=== PATIENT | male | born 1935 | race Caucasian/White ===

== ENCOUNTER 2018-04-30 14:52 | Emergency (ER) | payer OTHER ==
[~2018-04-30] VITALS: Ht 182.9 cm; Wt 74.8 kg
[2018-04-30 15:11] VITALS: BP 161/67
[2018-04-30] MEDS ORDERED: LIDOCAINE 1% 500 MG/50 ML VIAL INJ SCH (16:55)
[2018-04-30 17:58] VITALS: BP 155/69
== END 2018-04-30 17:59 | disposition home or self-care (01) ==
LOC: MED 14:52
DX: S16.1XXA Strain of muscle, fascia and tendon at neck level, initial encounter (principal); I10 Essential (primary) hypertension; X58.XXXA Exposure to other specified factors, initial encounter; Y93.89 Activity, other specified; Y92.89 Other specified places as the place of occurrence of the external cause; Y99.8 Other external cause status
CPT/HCPCS: 20552; 99284; J2001

== ENCOUNTER 2023-02-09 09:38 | Emergency (ER) | payer OTHER ==
[~2023-02-09] VITALS: Ht 182.9 cm; Wt 71.9 kg
[~2023-02-09 09:38] MED LIST: PANT40EC PO; ROB PO
[2023-02-09 10:01] VITALS: BP 156/79; PULSE 78; RESP 20; TEMP 98.7; O2SAT 100
[2023-02-09] MEDS ORDERED: LIDOCAINE 5% 1 EA PATCH TP SCH (13:50)
[2023-02-09] MEDS ORDERED: MORPHINE SULFATE 4 MG/ML SYR IM ONE (13:50)
--- NOTE | 2023-02-09 13:51 | NUR ---
PT HAS BEEN MEDICATED PER PROVIDERS ORDERS.
[2023-02-09 14:09] LABS: BASOPHILS % (AUTO) 0.1 % (0.0-2.0); EOSINOPHILS % (AUTO) 0.3 % (0.0-4.0); HEMATOCRIT 41.7 % (36-52); HEMOGLOBIN 14.6 g/dL (12.0-18.0); LYMPHOCYTES # (AUTO) 0.8 K/uL (2.0-11.5); LYMPHOCYTES % (AUTO) 12.9 % (20.5-51.1); MEAN CORPUSCULAR HEMOGLOBIN 32 pg (27-31); MEAN CORPUSCULAR HGB CONC 35 g/dL (33-37); MEAN CORPUSCULAR VOLUME 90.3 fL (80-94); MONOCYTES # (AUTO) 0.4 K/uL (0.8-1.0); MONOCYTES % (AUTO) 7.6 % (1.7-9.3); NEUTROPHILS # (AUTO) 4.6 K/uL (1.8-7.7); NEUTROPHILS % (AUTO) 79.1 % (42.2-75.2); PLATELET COUNT (AUTO) 178 K/uL (140-450); RED BLOOD CELL COUNT(AUTO) 4.62 MIL/uL (4.20-6.10); RED CELL DISTRIBUTION WIDTH 14.3 % (11.6-13.7); WHITE BLOOD COUNT (AUTO) 5.9 K/uL (4.8-10.8)
[2023-02-09 14:21] LABS: ALBUMIN 3.9 g/dL (3.4-5.0); ANION GAP 11.8 (8-16); ASPARTATE AMINOTRANSFERASE 24 U/L (15-37); CARBON DIOXIDE 28.7 mmol/L (21-32); CHLORIDE 102 mmol/L (98-107); CREATININE 0.9 mg/dL (0.6-1.3); GLUCOSE 92 mg/dL (74-106); POTASSIUM 4.5 mmol/L (3.5-5.1); SODIUM SERUM 138 mmol/L (136-145); TOTAL BILIRUBIN 1.2 mg/dL (0.0-1.0); UREA NITROGEN, BLOOD 18 mg/dL (7-18)
--- NOTE | 2023-02-09 15:00 | NUR ---
87 Y/0 M PATIENT PRESENTS TO ED WITH HX OF GERD, BPH, AND FALL LAST NIGHT AT 2200 . PT STATES HE WENT FROM SITTING TO STANDING AND SUDDENLY FELT LIGHT HEADED AND DIZZY PT HAD A LOSS OF CONCIOUSNESS. PT STATES HE FELL ON HIS LEFT SIDE. PT HAS A [id number] ON OCCIPITAL REGION OF HEAD. PT IS HAVING LFT HIP PAIN, LEFT FLANK PAIN, AND DENIES N/V/D; SKIN IS PINK/WARM/DRY; AAOX4 WITH EVEN AND STEADY GAIT; LUNGS CLEAR BL; HR EVEN AND REGULAR; PT DENIES ANY FEVER, CP, SOB, OR COUGH AT THIS TIME; PATIENT STATES PAIN OF 10/10 AT THIS TIME; VSS; PATIENT POSITIONED FOR COMFORT; CALL LIGHT WITH IN REACH HOB ELEVATED; BEDRAILS UP X2; BED DOWN. ER MD MADE AWARE OF PT STATUS. PMHX GERD BPH FALLS NKA
[2023-02-09] MEDS ORDERED: MORPHINE SULFATE 4 MG/ML SYR ONE (15:47)
[2023-02-09 15:53] VITALS: O2SAT 100
[2023-02-09] MEDS ORDERED: IBUP-2213 PO (15:53)
[2023-02-09] MEDS ORDERED: ACET-5636 PO (15:53)
--- NOTE | 2023-02-09 16:29 | NUR ---
The patient's care was reviewed and supervised by ANTONIO BYERS RN.
--- NOTE | 2023-02-09 17:00 | NUR ---
PTS WOUND CARE COMPLETED. PT TOLERATED WELL
--- NOTE | 2023-02-09 17:33 | NUR ---
Patient discharged with v/s stable. Written and verbal after care instructions given and explained. Patient verbalized understanding. Ambulatory with steady gait. All questions addressed prior to discharge. Advised to follow up with PMD.
[2023-02-09 17:34] VITALS: BP 139/78; PULSE 100; RESP 20; TEMP 98.7
--- NOTE | 2023-02-09 17:34 | NUR ---
PT STATED PAIN PATCHED HELPED WITH HIP PAIN. PAIN HAS REDUCED TO A 3
== END 2023-02-09 17:34 | disposition home or self-care (01) ==
LOC: MED 09:38
DX: S01.01XA Laceration without foreign body of scalp, initial encounter (principal); S46.812A Strain of other muscles, fascia and tendons at shoulder and upper arm level, left arm, initial encounter; S76.012A Strain of muscle, fascia and tendon of left hip, initial encounter; R55 Syncope and collapse; I10 Essential (primary) hypertension; Z79.899 Other long term (current) drug therapy; W19.XXXA Unspecified fall, initial encounter; Y93.89 Activity, other specified; Y92.89 Other specified places as the place of occurrence of the external cause; Y99.8 Other external cause status
CPT/HCPCS: 36415; 70450; 71101; 73030; 73502; 80053; 85025; 93005; 96372; 99285; J2270

== ENCOUNTER 2023-02-12 10:45 | Emergency (ER) | payer OTHER ==
[~2023-02-12] VITALS: Ht 182.9 cm; Wt 71.2 kg
[~2023-02-12 10:45] MED LIST changes: +ACET-5636 PO; +IBUP-2213 PO
[2023-02-12 10:55] VITALS: BP 136/59; PULSE 63; RESP 18; TEMP 98.1; O2SAT 98
[2023-02-12] MEDS ORDERED: ACET-9882 PO (12:31)
[2023-02-12] MEDS ORDERED: ACETAMINOPHEN EXTRA STRENGTH 500 MG TAB PO ONE (12:35)
[2023-02-12 12:57] VITALS: BP 132/62; PULSE 66; RESP 18; TEMP 98.1; O2SAT 99
--- NOTE | 2023-02-12 12:57 | NUR ---
Patient discharged with v/s stable. Written and verbal after care instructions FOR STAPLE REMOVAL given and explained. Patient alert, oriented and verbalized understanding of instructions. Ambulatory with steady gait. All questions addressed prior to discharge. ID band removed. Patient advised to follow up with PMD. Rx of TYLENOL XTRA STRENGTH given. Opportunity to ask questions provided and answered. REFUSING TO STAY FOR PAIN REASSESSMENT
--- NOTE | 2023-02-12 12:57 | NUR ---
The patient's care was reviewed and supervised by MIGUEL PEÑA RN.
--- NOTE | 2023-02-13 08:00 | NUR ---
Cathy horan in [facility] - 02/13/23 at 0802 by [email or web address] The patient's care was reviewed and supervised by MIGUEL PEÑA RN.
== END 2023-02-12 12:57 | disposition home or self-care (01) ==
LOC: MED 10:45
DX: S01.01XD Laceration without foreign body of scalp, subsequent encounter (principal); Z48.02 Encounter for removal of sutures; E11.9 Type 2 diabetes mellitus without complications; I10 Essential (primary) hypertension; Z79.4 Long term (current) use of insulin; Z79.899 Other long term (current) drug therapy; W18.30XD Fall on same level, unspecified, subsequent encounter
CPT/HCPCS: 99282

== ENCOUNTER 2023-02-15 14:22 | Emergency (ER) | payer OTHER ==
[~2023-02-15] VITALS: Ht 157.5 cm; Wt 68.9 kg
[~2023-02-15 14:22] MED LIST changes: +ACET-9882 PO
[2023-02-15 14:33] VITALS: BP 130/55; PULSE 72; RESP 18; TEMP 98.4; O2SAT 100
== END 2023-02-15 15:30 | disposition home or self-care (01) ==
LOC: MED 14:22
DX: S01.01XD Laceration without foreign body of scalp, subsequent encounter (principal); E11.9 Type 2 diabetes mellitus without complications; I10 Essential (primary) hypertension; Z79.899 Other long term (current) drug therapy; X58.XXXD Exposure to other specified factors, subsequent encounter
CPT/HCPCS: 99281